=== PATIENT | female | born 1990 | race Caucasian/White ===

== ENCOUNTER 2016-06-05 09:46 | Emergency (ER) | payer OTHER ==
[2016-06-05] MEDS ORDERED: HYDROCODONE/ACETAMINOPHEN 5-325 MG TABLET PO ONE ×2 (10:02→12:13)
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
[2016-06-05] MEDS ORDERED: HYDROCODONE/ACETAMINOPHEN 5-325 MG 6 TAB/DSPK PO PRN (12:13)
[2016-06-05 14:32] VITALS: BP 133/81
== END 2016-06-05 13:42 | disposition home or self-care (01) ==
LOC: ER 09:46
DX: S42.022A Displaced fracture of shaft of left clavicle, initial encounter for closed fracture (principal); M25.512 Pain in left shoulder; V28.0XXA Motorcycle driver injured in noncollision transport accident in nontraffic accident, initial encounter
CPT/HCPCS: 99284

== ENCOUNTER 2016-06-11 11:05 | Day surgery (SDC) | payer OTHER ==
[2016-06-09 11:42] LABS: ABSOLUTE EOSINOPHILS # (AUTO) 0.2 10^3/uL (0.0-0.6); ABSOLUTE LYMPHOCYTES (AUTO) 2.2 10^3/uL (0.5-4.7); ABSOLUTE MONOCYTES (AUTO) 0.5 10^3/uL (0.1-1.4); ABSOLUTE NEUT (AUTO) 3.8 10^3/uL (1.7-8.2); BASOPHILS % (AUTO) 0.6 % (0-2); EOSINOPHILS % (AUTO) 3.3 % (0-6); HEMATOCRIT 44.2 % (36.0-47.0); HEMOGLOBIN 15.3 g/dL (12.0-15.5); HGB HCT DIFFERENCE 1.7; MEAN CORPUSCULAR HGB CONC 34.6 g/dL (32.0-36.0); MEAN CORPUSCULAR VOLUME 93 fl (80-97); RED BLOOD COUNT 4.78 10^6/uL (3.72-5.28); RED CELL DISTRIBUTION WIDTH 13.3 % (11.5-14.0); SEGMENTED NEUTROPHILS % (AUTO) 56.1 % (42-78); WHITE BLOOD COUNT 6.8 10^3/uL (4.0-10.5)
[2016-06-09 11:48] LABS: APPEARANCE,URINE SLIGHTLY-CLOUDY; BILIRUBIN,URINE NEGATIVE (NEGATIVE); GLUCOSE, URINE NEGATIVE (NEGATIVE); KETONES,URINE NEGATIVE (NEGATIVE); LEUKOCYTE ESTERASE,URINE NEGATIVE (NEGATIVE); NITRITE,URINE NEGATIVE (NEGATIVE); PROTEIN,URINE NEGATIVE (NEGATIVE); URINE SPECIFIC GRAVITY 1.012; UROBILINOGEN,URINE NEGATIVE mg/dL (<2.0)
[2016-06-09 12:02] LABS: ANION GAP 15 (5-19); BLOOD UREA NITROGEN 12 mg/dL (7-20); CALCIUM 9.4 mg/dL (8.4-10.2); CARBON DIOXIDE 26 mmol/L (22-30); CHLORIDE 100 mmol/L (98-107); CREATININE RESULT 0.85 mg/dL (0.52-1.25); GLUCOSE 86 mg/dL (75-110); POTASSIUM 3.8 mmol/L (3.6-5.0); SODIUM 140.9 mmol/L (137-145)
--- NOTE | 2016-06-09 19:10 | EKG REPORT ---
SEVERITY:- NORMAL ECG - SINUS RHYTHM : Confirmed by: Parth Baron MD 09-Jun-2016 19:09:23
[~2016-06-11 11:05] MED LIST: BUPIVACAINE HCL 0.25 % INJ/PF (2.5 MG/1 ML) 30 ML VIAL ONE; CLINDAMYCIN 600 MG/D5W RTU 600 MG/50 ML RTUPB IV PRN; DEXAMETHASONE SOD PHOSPHATE INJ 4 MG/1 ML VIAL ONE; GLYCOPYRROLATE INJ 0.4 MG/2 ML VIAL ONE; KETOROLAC TROMETHAMINE 60 MG/2 ML SDV ONE; LACTATED RINGERS 1000 ML IV PRN; LIDOCAINE 0.5% INJ-PF (5 MG/ML) 50 ML SDV SUBCUT PRN; METOCLOPRAMIDE HCL INJ/PF 10 MG/2 ML SDV ONE; NEOSTIGMINE METHYLSULFATE 10 MG/10 ML VIAL ONE; ONDANSETRON HCL INJ/PF 4 MG/2 ML SDV ONE; PHENYLEPHRINE HCL INJ/PF 10 MG/1 ML SDV ONE; ROCURONIUM BROMIDE INJ 50 MG/5 ML VIAL IV ONE; VANCOMYCIN HCL 1,500 MG in DEXTROSE 5%-WATER 250 ML IV PRN
[2016-06-11] MEDS ORDERED: LIDOCAINE 2% INJ-PF (100 MG/5 ML) SYRINGE ONE (11:28)
[2016-06-11] MEDS ORDERED: ACETAMINOPHEN 100 ML IV ONE (11:28)
[2016-06-11] MEDS ORDERED: EPINEPHRINE INJ/PF 1 MG/1 ML AMPULE ONE (11:32)
[2016-06-11] MEDS ORDERED: FENTANYL CITRATE INJ/PF 250 MCG/5 ML AMPULE ONE (11:58)
[2016-06-11] MEDS ORDERED: MIDAZOLAM 2 MG/2 ML INJ ONE (11:59)
[2016-06-11] MEDS ORDERED: HYDROMORPHONE HCL INJ/PF 2 MG/ML AMPULE ONE (11:59)
[2016-06-11] MEDS ORDERED: DEXMEDETOMIDINE INJ 80 MCG/20 ML VIAL IV ONE (12:00)
[2016-06-11] MEDS ORDERED: PROPOFOL INJ 200 MG/20 ML VIAL IV ONE (12:00)
[2016-06-11] MEDS ORDERED: BUPIVACAINE HCL 0.5%-EPI 1:200000 INJ/PF 30 ML VIAL ONE (13:03)
[2016-06-11] MEDS ORDERED: BUPIVACAINE HCL 0.25% /EPINEPHRINE INJ/PF 30 ML SDV ONE (13:05)
[2016-06-11] MEDS ORDERED: FENTANYL CITRATE INJ/PF 100 MCG/2 ML AMPUL IV PRN ×3 (13:21)
[2016-06-11] MEDS ORDERED: DIPHENHYDRAMINE HCL 50 MG/ML VIAL IV PRN (13:21)
[2016-06-11] MEDS ORDERED: PROMETHAZINE HCL INJ 25 MG/1 ML VIAL IV PRN ×2 (13:21)
[2016-06-11] MEDS ORDERED: MEPERIDINE HCL/PF INJ 25 MG/1 ML DISP.SYRIN IV PRN (13:21)
--- NOTE | 2016-06-11 15:33 | PDOC DISCHARGE SUMMARY ---
Discharge Summary (SDC) - Discharge Final Diagnosis: Status post ORIF of left clavicle fracture Date of Surgery: 06/11/16 Discharge Date: 06/11/16 Condition: Good Treatment or Instructions: NWB Left Upper extremity Sling to LUE Change dressing after 5 days Okay to shower once dressing is changed. Instructed to do pendulum exercises starting tomorrow. Follow-up in 2 weeks in the office. Prescriptions: Oxycodone HCl/Acetaminophen [Percocet 5-325 mg Tablet] 1 - 2 tab PO ASDIR PRN # 60 tablet PRN Reason: Discharge Diet: As Tolerated Respiratory Treatments at Home: Deep Breathing/Coughing Discharge Activity: No Lifting/Push/Pulling Home Care Assistance: None Needed Report the Following to Your Physician Immediately: Fever over 101 Degrees, Unusual Bleeding, Redness, Swelling, Increased Soreness, Drainage-Yellow, Drainage-Green, Drainage-Foul Smelling
[2016-06-11] MEDS ORDERED: OXYCODONE-ACETAMINOPHEN 5-325 MG TABLET PO PRN ×2 (15:35)
[2016-06-11] MEDS ORDERED: ONDANSETRON HCL INJ/PF 4 MG/2 ML SDV IV PRN (15:36)
[2016-06-11] MEDS ORDERED: ONDANSETRON 4 MG TAB.RAPDIS ONE (17:52)
[2016-06-11 18:03] VITALS: BP 120/73
--- NOTE | 2016-06-17 16:38 | Operative Report ---
Operative Report DATE OF SURGERY: 06/11/16 PREOPERATIVE DIAGNOSIS: Left comminuted displaced clavicle fracture POSTOPERATIVE DIAGNOSIS: Same OPERATION: ORIF of left clavicle fracture SURGEON: ARABELLA CASTILLO ANESTHESIA: GA TISSUE REMOVED OR ALTERED: None COMPLICATIONS: None ESTIMATED BLOOD LOSS: 30 mL INTRAOPERATIVE FINDINGS: As above PROCEDURE: In the preop holding area patient received 2 g of IV Ancef. Patient was brought to the operating room and induced and intubated in supine position. Once the tube was secured the patient was placed in a beachchair position and the left side of the chest including the clavicle and left upper extremity were prepped and draped in a normal sterile surgical fashion. C-arm was brought in to make sure that we were able to take adequate pictures over the top. At this point timeout was done identifying the right clavicle is a correct site. Marcaine with epinephrine was injected in the anticipated surgical site. I did a longitudinal incision right over the clavicle just anterior and still the superior. Hemostasis was obtained using electrocautery. 15 blade and electrodecautery was used to split the fascial tissue and also to reflect the pectoralis major off the clavicle and reflected the trapezius posteriorly. Fracture plane was visualized and the hematoma was suctioned. All fragments were exposed and periosteal elevator was used to reflect and release the tissue over the 2 main fragments. I used lobster claw and K wires to obtain my reduction of the smaller pieces to the large fragments. This was confirmed with C-arm. I did probe 1 lag screw to hold one of the butterfly fragments to the lateral fragment. I was able to reduce the appropriate plate to the reduction and placed 1 screw proximal distal to the fracture site I was able to put 3 screws medial and 3 screws lateral by drilling and measuring and putting the appropriate screws with the appropriate length. C-arm pictures showed proper fixation and length and placement of the plate and screws. Reduction was acceptable so at this point we proceeded to irrigate the wound and approximate the fascial tissue with 0 Vicryl. I used 2-0 Vicryl to approximate the dermis and did a 4-0 Monocryl for running subcuticular closure. Benzoin and Steri-Strips were applied. I then placed a OpSite dressing. Patient was placed in a sling and drapes were removed. Patient was successfully extubated in a supine position and sent to PACU in a stable condition.
== END 2016-06-11 18:03 | disposition home or self-care (01) ==
LOC: OROUT 11:05
PROVIDERS: ATTEND Orthopaedic Surgery
PROC: 0PSB04Z Reposition Left Clavicle with Internal Fixation Device, Open Approach (ICD-10-PCS; principal; 2016-06-11 13:00)
DX: S42.022D Displaced fracture of shaft of left clavicle, subsequent encounter for fracture with routine healing (principal); X58.XXXD Exposure to other specified factors, subsequent encounter; Z88.0 Allergy status to penicillin; Z79.899 Other long term (current) drug therapy
CPT/HCPCS: 23515; 93005; 36415; 85025; 81025; 80048; 81001; 71020; 73000; 93010; J2250; J3490 ×3; J1100; J0171; J1885; S0119; J3010; J2001; J2765; J1170; J2370; J2405; J7060; J2704; J3370; J0131; 00450

== ENCOUNTER 2018-03-31 21:51 | Emergency (ER) | payer BC, OTHER ==
[2018-03-31 23:09] LABS: APPEARANCE,URINE SLIGHTLY-CLOUDY; BILIRUBIN,URINE NEGATIVE (NEGATIVE); COLOR,URINE YELLOW; GLUCOSE, URINE NEGATIVE (NEGATIVE); KETONES,URINE 80 mg/dL (NEGATIVE); LEUKOCYTE ESTERASE,URINE NEGATIVE (NEGATIVE); NITRITE,URINE NEGATIVE (NEGATIVE); PROTEIN,URINE NEGATIVE (NEGATIVE); URINE SPECIFIC GRAVITY 1.027; UROBILINOGEN,URINE NEGATIVE mg/dL (<2.0)
[2018-03-31] MEDS ORDERED: ONDANSETRON HCL INJ/PF 4 MG/2 ML SDV IV ONE (23:11)
[2018-03-31] MEDS ORDERED: NORMAL SALINE 1000 ML 1,000 ML IV ONE (23:12)
[2018-03-31 23:55] LABS: ABSOLUTE LYMPHOCYTES (AUTO) 0.8 10^3/uL (0.5-4.7); ABSOLUTE MONOCYTES (AUTO) 0.5 10^3/uL (0.1-1.4); ABSOLUTE NEUT (AUTO) 3.9 10^3/uL (1.7-8.2); BASOPHILS % (AUTO) 0.3 % (0-2); EOSINOPHILS % (AUTO) 0.1 % (0-6); HEMATOCRIT 43.6 % (36.0-47.0); HEMOGLOBIN 15.6 g/dL (12.0-15.5); LYMPHOCYTES % (AUTO) 14.9 % (13-45); MEAN CORPUSCULAR HEMOGLOBIN 32.1 pg (27.0-33.4); MEAN CORPUSCULAR HGB CONC 35.8 g/dL (32.0-36.0); MEAN CORPUSCULAR VOLUME 90 fl (80-97); MONOCYTES % (AUTO) 8.9 % (3-13); PLATELET COUNT 216 10^3/uL (150-450); RED BLOOD COUNT 4.86 10^6/uL (3.72-5.28); SEGMENTED NEUTROPHILS % (AUTO) 75.8 % (42-78); TOTAL CELLS COUNTED % (AUTO) 100 %; WHITE BLOOD COUNT 5.1 10^3/uL (4.0-10.5)
[2018-04-01 00:19] LABS: ALANINE AMINOTRANSFERASE 20 U/L (9-52); ALBUMIN 4.8 g/dL (3.5-5.0); ALKALINE PHOSPHATASE 90 U/L (38-126); ANION GAP 14 (5-19); ASPARTATE AMINO TRANSFERASE 24 U/L (14-36); BILIRUBIN,DIRECT 0.4 mg/dL (0.0-0.4); BILIRUBIN,TOTAL 0.8 mg/dL (0.2-1.3); BLOOD UREA NITROGEN 17 mg/dL (7-20); CALCIUM 9.2 mg/dL (8.4-10.2); CARBON DIOXIDE 26 mmol/L (22-30); CHLORIDE 102 mmol/L (98-107); GLUCOSE 81 mg/dL (75-110); POTASSIUM 3.8 mmol/L (3.6-5.0); SODIUM 141.5 mmol/L (137-145); TOTAL PROTEIN 7.2 g/dL (6.3-8.2)
[2018-04-01 01:30] VITALS: BP 115/63
--- NOTE | 2018-04-01 02:27 | ER Document Report ---
Entered by OBINNA SHAW SCRIBE 03/31/18 1972 Acting as scribe for:GREG HUERTAS DO ED General - General Chief Complaint: Abdominal Pain Stated Complaint: STOMACH PAIN Time Seen by Provider: 03/31/18 22:52 Mode of Arrival: Ambulatory Information source: Patient Notes: Patient is a 27 year old female presenting to the emergency department complaining of lower abdominal pain onset 2 days ago and back pain onset today. She describes her abdominal pain as severe and states her back pain radiates from her mid back to her tailbone. She further reports being unable to eat or hold any food down. She also complains of nausea, dry heaving, 1 episode of vomiting, diarrhea and a fever. She mentions her children having vomiting episodes earlier this week. She denies hematemesis, vaginal discharge or vaginal bleeding. Patient states she is currently breast feeding her 13 month old child and reports having a decreased supply of breast milk, further stating she normally pumps 9 ounces but has only pumped 2 ounces today. She is currently on prenatals. TRAVEL OUTSIDE OF THE [place] IN LAST 30 DAYS: No - Related Data Allergies/Adverse Reactions: Penicillins Allergy (Verified 06/05/16 11:54) red dye Allergy (Verified 06/05/16 11:54) Past Medical History - General Information source: Patient - Social History Smoking Status: Never Smoker Cigarette use (# per day): No Chew tobacco use (# tins/day): No Smoking Education Provided: No Frequency of alcohol use: None Family History: Reviewed & Not Pertinent Psychiatric Medical History: Reports: Hx Depression - Immunizations Hx Diphtheria, Pertussis, Tetanus Vaccination: Yes Review of Systems - Review of Systems Constitutional: See HPI, Fever EENT: No symptoms reported Cardiovascular: No symptoms reported Respiratory: No symptoms reported Gastrointestinal: See HPI, Diarrhea, Nausea, Vomiting Genitourinary: No symptoms reported Female Genitourinary: No symptoms reported Musculoskeletal: No symptoms reported Skin: No symptoms reported Hematologic/Lymphatic: No symptoms reported Neurological/Psychological: No symptoms reported -: Yes All other systems reviewed and negative Physical Exam - Vital signs Vitals: Temp Pulse Resp BP Pulse Ox 99.9 F 108 H 17 121/76 99 03/31/18 22:44 03/31/18 22:44 03/31/18 22:44 03/31/18 22:44 03/31/18 22:44 - Notes Notes: GENERAL: Alert, interacts well. No acute distress. HEAD: Normocephalic, atraumatic. EYES: Pupils equal, round, and reactive to light. Extraocular movements intact. ENT: Oral mucosa moist, tongue midline. NECK: Full range of motion. Supple. Trachea midline. LUNGS: Clear to auscultation bilaterally, no wheezes, rales, or rhonchi. No respiratory distress. HEART: Regular rate and rhythm. No murmurs, gallops, or rubs. ABDOMEN: Soft, LLQ tenderness to palpation, no guarding, rigidity or rebounding. Non-distended. Bowel sounds present in all 4 quadrants. EXTREMITIES: Moves all 4 extremities spontaneously. No edema, radial pulses 2/4 bilaterally. No cyanosis. NEUROLOGICAL: Alert and oriented x3. Normal speech. PSYCH: Normal affect, normal mood. SKIN: Warm, dry, normal turgor. No rashes or lesions noted. Course - Re-evaluation Re-evalutation: 04/01/18 01:01 CBC unremarkable, CMP unremarkable, lipase normal, urinalysis shows 80 ketones indicating dehydration but no signs of infection or blood, test is negative. Patient was hydrated with a liter of normal saline, patient declined any pain medication including Toradol. Despite this patient's back pain has improved. Patient is being given an oral challenge of osito brooke and saltines. Suspect viral process causing the vomiting, diarrhea and myalgias.After Zofran. If she is able to keep this down for 30 minutes she will be discharged to home did not test for influenza as it has been greater than 72 hours. Patient will be discharged home with antinausea medications. 04/01/18 01:02 Passed oral challenge without any difficulty. Being discharged home. - Vital Signs Vital signs: Temp Pulse Resp BP Pulse Ox 98.9 F 94 18 115/63 98 04/01/18 01:18 04/01/18 01:18 04/01/18 01:18 04/01/18 01:18 04/01/18 01:18 - Laboratory Result Diagrams: 03/31/18 23:30 03/31/18 23:30 Laboratory results interpreted by me: 03/31/18 03/31/18 21:55 23:30 Hgb 15.6 H Urine Ketones 80 H Discharge - Discharge Clinical Impression: Nausea vomiting and diarrhea Condition: Stable Disposition: HOME, SELF-CARE Additional Instructions: Vomiting Vomiting (or nausea without vomiting) can be caused by many other different problems. It can mean that something's wrong with the stomach, such as ulcers or inflammation or the intestinal tract, such as appendicitis. But it can also be a symptom of a problem that has nothing to do with the stomach or intestines. Vomiting is common with severe headaches, earaches, tonsillitis, and kidney infections, etc. We see it with pneumonia or heart attacks. Drugs can cause nausea and vomiting. Many abdominal problems cause vomiting; for example, gallstones, kidney stones, pancreatitis, and intestinal obstruction (blocked bowels). In most cases, curing the vomiting depends on fixing the problem that caused it. For temporary relief, we may use an anti-nausea medicine. For home use, we can prescribe suppositories, chewable pills, pills that dissolve in the mouth, or liquid anti-nausea drugs. If the vomiting seems to be caused by a pr oblem in the stomach, acid-suppressing drugs may be prescribed as well. It's important to avoid dehydration. Sip small amounts of clear liquids (soft drinks, tea, broth, etc) . Try to take fluids frequently even if you are vomiting to prevent dehydration. Take increasing amounts of fluid and when liquids are being consumed successfully, advance to small amounts of bland food (toast, soups, mashed potatoes, etc.) until you are able to resume a regular diet. Avoid aspirin, tobacco, and alcohol. If the vomiting worsens, if the problem that's making you vomit worsens, or if there's evidence of bleeding in the stomach (such as black, tarry stool, or bloody or black vomit), you should return immediately. Also, return if abdominal pain worsens or becomes localized to one area or you develop high fever. Call your doctor if you aren't improved in 24 hours. Prescriptions: Ondansetron [Zofran Odt 4 mg Tablet] 1 - 2 tab PO Q4H PRN #15 tab.rapdis PRN Reason: For Nausea/Vomiting Promethazine HCl [Phenergan 25 mg Tablet] 1 - 2 tab PO Q6H PRN #15 tablet PRN Reason: Forms: Return to Work Scribe Attestation: 04/01/18 02:27 I personally performed the services described in the documentation, reviewed and edited the documentation which was dictated to the scribe in my presence, and it accurately records my words and actions. I personally performed the services described in the documentation, reviewed and edited the documentation which was dictated to the scribe in my presence, and it accurately records my words and actions.
== END 2018-04-01 01:30 | disposition home or self-care (01) ==
LOC: ER 21:51
DX: R11.2 Nausea with vomiting, unspecified (principal); R10.30 Lower abdominal pain, unspecified; R19.7 Diarrhea, unspecified; R50.9 Fever, unspecified; Z88.0 Allergy status to penicillin
CPT/HCPCS: 99284; 96361; 96374; 36415; 83690; 85025; 81025; 80053; 81001; J2405; J7030